=== PATIENT | female | born 1980 | race Caucasian/White ===

== ENCOUNTER 2017-01-26 12:56 | Outpatient (CLI) | payer BC, OTHER ==
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
== END 2017-01-26 12:57 | disposition home or self-care (01) ==
LOC: DI 12:56
PROVIDERS: ATTEND Chiropractor
DX: S13.9XXA Sprain of joints and ligaments of unspecified parts of neck, initial encounter (principal); S23.3XXA Sprain of ligaments of thoracic spine, initial encounter; S33.5XXA Sprain of ligaments of lumbar spine, initial encounter; S33.6XXA Sprain of sacroiliac joint, initial encounter
CPT/HCPCS: 72050; 72070; 72100